=== PATIENT | male | born 1995 | race Caucasian/White ===

== ENCOUNTER 2019-06-05 13:46 | Emergency (ER) | payer BC ==
[~2019-06-05] VITALS: Ht 170.2 cm; Wt 83.0 kg
[2019-06-05 13:50] VITALS: Ht 170.2 cm; Wt 83.0 kg
[2019-06-05 15:39] VITALS: BP 146/94
== END 2019-06-05 15:39 | disposition home or self-care (01) ==
LOC: ED 13:46
DX: S43.005A Unspecified dislocation of left shoulder joint, initial encounter (principal); Z98.890 Other specified postprocedural states; X58.XXXA Exposure to other specified factors, initial encounter; Y93.89 Activity, other specified; Y92.89 Other specified places as the place of occurrence of the external cause; Y99.8 Other external cause status
CPT/HCPCS: J1885; J2405; J3010; Q0092